=== PATIENT | female | born 1990 | race Two or more races ===

== ENCOUNTER 2017-08-28 06:45 | Inpatient (IN) | payer OTHER ==
[2017-08-28] MEDS ORDERED: OBEPIDURAL* 250 ML EPIDURAL ONE (10:30)
[2017-08-28] MEDS: Clindamycin 900 MG IVPREMIX(* 900 MG/50 ML SDV IV SCH ×2 (10:33→18:32)
[2017-08-28 10:37] LABS: Hematocrit 35 % (35-47); Hemoglobin 11.4 g/dl (12.0-16.0); Mean Corpuscular HGB Conc 33 g/dl (31-36); Mean Corpuscular Hemoglobin 26 pg (27-31); Mean Corpuscular Volume 79 fL (80-97); Mean Platelet Volume 8 um3 (7.4-10.4); Red Blood Count 4.47 10^6/ul (4.0-5.4); Red Cell Distribution Width 16 % (10.5-15); White Blood Count 18.3 10^3/ul (3.5-10.8)
[2017-08-28] MEDS ORDERED: Sodium Citrate/Citric Acid* 15 ML UDC PO PRN (11:19)
[2017-08-28] MEDS ORDERED: Famotidine TAB* 20 MG PO PRN (11:19)
[2017-08-28] MEDS ORDERED: Phenylephrine IV* 40 MCG/ML 10 ML SYRINGE IV PUSH PRN (11:19)
[2017-08-28] MEDS ORDERED: EPHEDrine (Pressors)* 50 MG/ML VIAL IV PUSH PRN (11:19)
[2017-08-28] MEDS ORDERED: OBEPIDURAL* 250 ML EPIDURAL SCH (12:00)
[2017-08-28] MEDS ORDERED: Oxytocin in LR* 20 UNITS/1,000 ML BAG IVPB ONE (16:51)
[2017-08-28] MEDS ORDERED: Dibucaine 1% 28.35 GM TUBE ONE (19:23)
[2017-08-28] MEDS ORDERED: Witch Hazel PAD* JAR ONE (19:24)
[2017-08-28] MEDS ORDERED: Glycerin ADULT SUPP PR PRN (20:30)
[2017-08-28] MEDS ORDERED: Tetan/Diph/Pertus SYR(Tdap)* 0.5 ML SYR(BOOSTRIX) use SYR IM ONE (20:30)
[2017-08-28] MEDS ORDERED: Ibuprofen TAB* 600 MG PO PRN (20:30)
[2017-08-28] MEDS ORDERED: Acetaminophen TAB* 325 MG PO PRN (20:30)
[2017-08-28] MEDS ORDERED: Dibucaine 1% 28.35 GM TUBE PR PRN (20:30)
[2017-08-28] MEDS ORDERED: Witch Hazel PAD* JAR TOPICAL PRN (20:30)
[2017-08-28] MEDS ORDERED: Oxytocin in LR* 20 UNITS/1,000 ML BAG IVPB SCH (21:00)
[2017-08-29] MEDS: Docusate CAP* 100 MG PO SCH ×4 (00:13→21:34)
[2017-08-29] MEDS: Simethicone TAB* 80 MG TAB.CHEW PO SCH ×2 (00:13→09:37)
[2017-08-29 06:52] LABS: Hematocrit 32 % (35-47); Hemoglobin 10.6 g/dl (12.0-16.0); Mean Corpuscular HGB Conc 33 g/dl (31-36); Mean Corpuscular Hemoglobin 26 pg (27-31); Mean Corpuscular Volume 79 fL (80-97); Mean Platelet Volume 8 um3 (7.4-10.4); Red Blood Count 4.08 10^6/ul (4.0-5.4); Red Cell Distribution Width 16 % (10.5-15); White Blood Count 21.7 10^3/ul (3.5-10.8)
[2017-08-29 06:58] LABS: Add Diff/Slide Review? Slide Review Added; Comments Flag Yes
[2017-08-29] MEDS: Clindamycin 900 MG IVPREMIX(* 900 MG/50 ML SDV IV SCH (09:35)
[2017-08-29] MEDS: Ferrous Gluconate TAB* 324 MG TAB PO SCH (09:38)
[2017-08-30 08:03] VITALS: BP 111/72
[2017-08-30] MEDS: Ferrous Gluconate TAB* 324 MG TAB PO SCH (10:23)
[2017-08-30] MEDS: Docusate CAP* 100 MG PO SCH (10:23)
== END 2017-08-30 18:06 | disposition home or self-care (01) | DRG 560 ==
LOC: MCHOBOUT 06:45 → MCHOB 10:10
PROVIDERS: ADMIT Obstetrics & Gynecology; ATTEND Obstetrics & Gynecology
PROC: 10E0XZZ Delivery of Products of Conception, External Approach (ICD-10-PCS; principal; 2017-08-28)
PROC: 10907ZC Drainage of Amniotic Fluid, Therapeutic from Products of Conception, Via Natural or Artificial Opening (ICD-10-PCS; 2017-08-28)
PROC: 4A1HXCZ Monitoring of Products of Conception, Cardiac Rate, External Approach (ICD-10-PCS; 2017-08-28)
PROC: 4A1H7CZ Monitoring of Products of Conception, Cardiac Rate, Via Natural or Artificial Opening (ICD-10-PCS; 2017-08-28)
PROC: 10H073Z Insertion of Monitoring Electrode into Products of Conception, Via Natural or Artificial Opening (ICD-10-PCS; 2017-08-28)
PROC: 0KQM0ZZ Repair Perineum Muscle, Open Approach (ICD-10-PCS; 2017-08-28)
PROC: 0UQMXZZ Repair Vulva, External Approach (ICD-10-PCS; 2017-08-28)
DX: O48.0 Post-term pregnancy (principal); O69.82X0 Labor and delivery complicated by other cord entanglement, without compression, not applicable or unspecified; Z3A.40 40 weeks gestation of pregnancy; Z37.0 Single live birth; O99.824 Streptococcus B carrier state complicating childbirth; Z88.0 Allergy status to penicillin; O70.1 Second degree perineal laceration during delivery
CPT/HCPCS: 36415; 85025; 86850; 86900; 86901; A9270-GY

== ENCOUNTER 2017-09-28 21:18 | Emergency (ER) | payer MEDICAID ==
[2017-09-28 21:34] VITALS: BP 133/66
[2017-09-28] MEDS ORDERED: Lidocaine 2% VISCOUS* 15 ML UDC PO ONE (22:05)
--- NOTE | 2017-09-28 22:14 | UC ---
GI Bleed HPI - HPI Summary HPI Summary: constipated painful to pass stools, blood streaks on stool has been on/off for a few weeks - History Of Current Complaint Hx Obtained From: Patient Hx Last Menstrual Period: post bleeding ?: No Onset/Duration: Gradual Onset, Lasting Weeks, Still Present Severity: Blood-Streaked Stool Severity Initially: Moderate Severity Currently: Moderate - pain with passing stool Aggravating Factor(s): Bowel Movement Associated Signs And Symptoms: Positive: Constipation, Rectal Pain <Kyra Altman - Last Filed: 10/03/17 14:04> <Jennifer Bright - Last Filed: 10/03/17 16:12> - History Of Current Complaint Chief Complaint: UCGI Stated Complaint: BLOODY STOOL,PAIN GOING Time Seen by Provider: 09/28/17 21:39 - Allergies/Home medications Allergies/Adverse Reactions: Allergies Allergy/AdvReac Type Severity Reaction Status Date / Time Penicillins [PCN] Allergy Unknown Verified 08/28/17 07:17 Reaction Details PMH/Surg Hx/FS Hx/Imm Hx Previously Healthy: Yes - Surgical History Surgical History: None - Family History Known Family History: Positive: None - Social History Occupation: Unemployed Lives: With Family Alcohol Use: None Substance Use Type: None Smoking Status (MU): Never Smoked Tobacco - Immunization History Most Recent Influenza Vaccination: declined Most Recent Pneumonia Vaccination: none <Kyra Altman - Last Filed: 10/03/17 14:04> Review of Systems Constitutional: Negative Skin: Negative Eyes: Negative ENT: Negative Respiratory: Negative Cardiovascular: Negative Gastrointestinal: Negative, Other - constipation and rectal pain Genitourinary: Negative Motor: Negative Neurovascular: Negative Musculoskeletal: Negative Neurological: Negative Psychological: Negative Is Patient Immunocompromised?: No All Other Systems Reviewed And Are Negative: Yes <Kyra Altman - Last Filed: 10/03/17 14:04> Physical Exam Triage Information Reviewed: Yes Appearance: Well-Appearing, No Pain Distress, Well-Nourished Vital Signs: Initial Vital Signs Temp 99.1 F 09/28/17 21:24 Pulse 108 09/28/17 21:24 Resp 16 09/28/17 21:24 BP 133/66 09/28/17 21:24 Pulse Ox 99 09/28/17 21:24 Vital Signs Reviewed: Yes Eye Exam: Normal Eyes: Positive: Conjunctiva Clear ENT Exam: Normal ENT: Positive: Normal ENT inspection, Hearing grossly normal. Negative: Nasal congestion, Nasal drainage, Trismus, Muffled voice, Hoarse voice, Dental tenderness Dental Exam: Normal Neck exam: Normal Neck: Positive: Supple, Nontender Respiratory Exam: Normal Respiratory: Positive: Chest non-tender, No respiratory distress, No accessory muscle use Cardiovascular Exam: Normal Cardiovascular: Positive: RRR, No Murmur, Pulses Normal, Brisk Capillary Refill Abdominal Exam: Normal Abdomen Description: Positive: Nontender, No Organomegaly, Soft. Negative: CVA Tenderness (R), CVA Tenderness (L) Bowel Sounds: Positive: Present Musculoskeletal Exam: Normal Musculoskeletal: Positive: Strength Intact, ROM Intact, No Edema Neurological Exam: Normal Neurological: Positive: Alert, Muscle Tone Normal Psychological Exam: Normal Skin Exam: Normal <Kyra Altman - Last Filed: 10/03/17 14:04> Vital Signs: Initial Vital Signs Temp 99.1 F 09/28/17 21:24 Pulse 108 09/28/17 21:24 Resp 16 09/28/17 21:24 BP 133/66 09/28/17 21:24 Pulse Ox 99 09/28/17 21:24 <Jennifer Bright - Last Filed: 10/03/17 16:12> UC Physical Exam Vital Signs On Initial Exam: Initial Vitals Temp Pulse Resp BP Pulse Ox 99.1 F 108 16 133/66 99 09/28/17 21:24 09/28/17 21:24 09/28/17 21:24 09/28/17 21:24 09/28/17 21:24 - Rectal Exam Rectal Exam: Normal Rectal Tone, No Mass, Fissure, Tenderness, Other - no hemorrhoids noted externally <Kyra Altman - Last Filed: 10/03/17 14:04> Vital Signs On Initial Exam: Initial Vitals Temp Pulse Resp BP Pulse Ox 99.1 F 108 16 133/66 99 09/28/17 21:24 09/28/17 21:24 09/28/17 21:24 09/28/17 21:24 09/28/17 21:24 <Jennifer Bright - Last Filed: 10/03/17 16:12> Bleed Course/Dx - Course Course Of Treatment: stool softness, topical numbing for rectal pain, stop Iron tablets increase fluids follow with pcp - Differential Dx/Diagnosis Provider Diagnoses: Constipation, anal fisure <Kyra Altman - Last Filed: 10/03/17 14:04> Discharge <Kyra Altman - Last Filed: 10/03/17 14:04> <Jennifer Bright - Last Filed: 10/03/17 16:12> - Discharge Plan Condition: Stable Disposition: HOME Prescriptions: Dibucaine 1% OINT* [Nupercainal 1% oint*] 1 applic TX QID PRN #1 tube PRN Reason: DISCOMFORT Hemorrhoidal SUPP* [Preparation H Supp*] 1 supp TX Q12H PRN #1 box PRN Reason: pain Witch Itzel PAD* [Tucks*] 1 pad TOPICAL .PRN PRN #1 jar PRN Reason: Discomfort Patient Education Materials: Constipation (ED), Rectal Bleeding (ED), Anal Fissure (ED), High Fiber Diet (ED) Referrals: Lluvia Fung MD [Medical Doctor] - 3 Days Attestation Statement User Type: Provider - I was available for consult. This patient was seen by the [facility]. The patient was not presented to, seen by, or examined by me. -Justino <Jennifer Bright - Last Filed: 10/03/17 16:12>
== END 2017-09-28 22:15 | disposition home or self-care (01) ==
LOC: UCEAST 21:18
DX: K59.00 Constipation, unspecified (principal); K60.2 Anal fissure, unspecified; Z88.0 Allergy status to penicillin
CPT/HCPCS: 99212; G0463